=== PATIENT | female | born 1945 | race Caucasian/White ===

== ENCOUNTER → 2017-05-06 | Outpatient (CLI) | payer MEDICARE, OTHER ==
[~2017-05-06] MED LIST: ADVAIR 2501 DISK W/D; ADVAIR 5001 DISK W/1 INH; ALBUTEROL17 GM; ALBUTEROL17 GM INH; ALLEGRA ALLERG180 MG PO; AMIODARONE; ASPIRIN; ATROVENT HFA12.9 G2 INH; BENZONATATE200 M1 PO; CALCIUM 500 + D1 TAB; COMBIVENT INH14.7 GM; COUMADIN; DOCUSATE SODIU100 MG PO; DOXYCYCLINE HY100 M3 PO; DULOXETINE HCL60 MG; DULOXETINE HCL60 MG PO; FENOFIBRATE145 M1 PO; FLAGYL PO; FOLIC ACID1 MG; GLUCOPHAGE500 M1 PO; GLUCOSAMINE-CHO1 TA5 PO; HYDROCODONE/APA1 T16 PO; LASIX; LASIX20 MG PO; LEVAQUIN750 M1 PO; LISINOPRIL2.5 MG PO; LOPRESSOR PO; LOW DOSE ASPIRI81 M2 PO; MAGNESIUM400 MG PO; METAMUCIL0.52 G; MUCINEX DM1 TAB.SR .; NEURONTIN300 MG PO; OMEPRAZOLE40 M1 PO; ONDANSETRO8 MG/UDTAB PO; OXYCODONE HCL5 MG; PRADAXA150 MG PO; SENOKOT S1 TA1 PO; SYNTHROID; SYNTHROID75 MCG PO; TOPAMAX; TOPAMAX50 MG PO; VIAGRA; VICODIN 5/500 T1 TAB; VITAMIN B122500 MCG PO; VITAMIN D250000 UNIT PO; ZANTAC; ZOLOFT
--- NOTE | ~2017-05-06 | CT2 ---
[facility] A Service of [facility] & [facility] RADIOLOGY TEXT RESULTS PATIENT: MESSI MITCHELL LOCATION: [facility] : 44 UNIT #: [id number] AGE: [address]: Yomaira Mehta MD SEX: F ORDER DR: [id number] [facility] [address] [place], [place] [address] [id number] O MR#: [id number] Acc #: [id number] NAME: MESSI MITCHELL : 1945 SEX: F STUDY DATE/TIME: 05/06/2017 11:31 UNIT: [facility] ROOM: STUDY DESCRIPTION: CT Abd and Pelv W Cont Attending Physician: Yomaira Mehta M.D. Referring Physician: Yomaira Mehta M.D. Ordering Physician: Yomaira Mehta M.D. Primary Care Physician: Selina Valenzuela M.D. MEDICAL IMAGING REPORT This report is preliminary unless electronic signature is present EXAM Abdomen and pelvis CT with contrast, 05/06/2017. INDICATIONS 72-year-old female with a history of malignant neoplasm of the pancreas. Nausea, vomiting, weight loss of 40 pounds over the past 6 months. Diarrhea since November. Status post chemotherapy and radiation therapy. Status post pancreatic surgery and cholecystectomy. TECHNIQUE Contrast enhanced CT of the abdomen and pelvis was performed compared with 09/10/2016. This CT exam was performed with one or more of the following radiation dose reduction techniques: Automatic exposure control, adjustment of mA and/or kV according to patient size, and iterative reconstruction. FINDINGS CT abdomen: Please see the separately dictated CT chest same date for further details regarding chest findings. There are new noncalcified pulmonary nodules in the left lower lobe most characteristic of metastatic disease until proven otherwise. Background changes of emphysema are present. Small left effusion. Aorta demonstrates atherosclerotic change. There is ectasia but no aneurysm or dissection. The patient is status post resection of the body and tail of the pancreas. There are new omental and mesenteric masses intimately associated with the transverse colon and splenic flexure of the colon and the undersurface of the left hemidiaphragm that are most characteristic of metastatic disease until proven otherwise. One mass associated with the splenic flexure of the colon measures 5.4 x 2.3 cm. A second mass more posteriorly at nearly the same level measures 3.5 x 4.3 cm. Intimately associated with the STS. [facility] A Service of [facility] & [facility] RADIOLOGY TEXT RESULTS PATIENT: MESSI MITCHELL LOCATION: [facility] : 44 UNIT #: [id number] AGE: [address]: Yomaira Mehta MD SEX: F ORDER DR: proximal descending colon and splenic flexure, there is a third mass measuring 3.9 x 3.2 cm. Smaller probable omental metastatic deposits are also present including an 11 mm nodule associated with the peritoneal reflection in the midline anteriorly and a nodule anterior to the distal transverse colon measuring 11 mm. Spleen surgically absent. Adrenal glands unremarkable. There is an upper pole cyst on the left measuring 18 mm. No hydronephrosis of either kidney. Liver unremarkable gallbladder surgically absent. Stomach not well distended or evaluated. There is an abnormal-appearing lymph node or additional mesenteric soft tissue deposit measuring 14 x 19 mm in the gastrohepatic ligament. CT pelvis: Bladder distended but otherwise unremarkable. No drainable fluid collection in the pelvis. There are new nodules interposed between the rectum and uterus measuring 8 and 6 mm respectively not clearly demonstrated on the prior study and therefore suspicious for drop metastases. Equivocal additional adnexal nodules on the left measuring 12 and 14 mm respectively. These could alternatively represent unopacified bowel loops. At this point, there is no evidence of bowel obstruction. There is an area of fat necrosis in the left upper quadrant. Appendix normal. Inguinal canals unremarkable. Osseous structures demonstrate lucencies in the L2 vertebral body and a superior endplate compression deformity of L1 that are unchanged. There is lumbar levoscoliosis with a rotational component clockwise in rotation. IMPRESSION 1. Abnormal examination. Imaging features are most characteristic of interval development of metastatic disease with multiple mesenteric and omental masses and smaller nodules in the left upper quadrant and upper midline abdomen as described. The largest measures up to 5.4 cm associated with the splenic flexure and junction of the distal transverse colon. See reference measurements and locations of the other masses and nodules in the body of the report. 2. At this point, there is no free air or bowel obstruction or drainable fluid collection. 3. 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 Equivocal drop metastases in the left adnexa measuring up to 1.4 cm. 4. Postop changes related to pancreatic partial resection, splenectomy and cholecystectomy. 5. Left renal cyst. 6. Please see the separately dictated CT chest same date for further details regarding findings most characteristic of metastatic disease to the chest that has developed in the interval. 7. No interval change in a superior endplate compression deformity of L1 and lucencies at the L2 level. STAT * RESULT [facility]. [facility] A Service of [facility] RADIOLOGY TEXT RESULTS PATIENT: MESSI MITCHELL LOCATION: [facility] : 44 UNIT #: [id number] AGE: [address]: Yomaira Mehta MD SEX: F ORDER DR: Dictated by... Pepe Velasquez M.D. THIS IS AN ELECTRONICALLY VERIFIED REPORT Pepe Velasquez M.D. at 05/06/2017 3:53 PM Sav TD: 05/06/2017 13:03 JOB #: [id number] MEDICAL IMAGING REPORT Page 1 of 1 COPY
--- NOTE | ~2017-05-06 | CT55 ---
[facility] A Service of [facility] & [facility] RADIOLOGY TEXT RESULTS PATIENT: MESSI MITCHELL LOCATION: [facility] : 44 UNIT #: [id number] AGE: [address]: Yomaira Mehta MD SEX: F ORDER DR: [id number] [facility] [address] [place], [place] [address] [id number] O MR#: [id number] [facility] #: [id number] NAME: MESSI MITCHELL : 1945 SEX: F STUDY DATE/TIME: 05/06/2017 11:31 UNIT: [facility] ROOM: STUDY DESCRIPTION: CT Chest W Con Attending Physician: Yomaira Mehta M.D. Referring Physician: Yomaira Mehta M.D. Ordering Physician: Yomaira Mehta M.D. Primary Care Physician: Selina Valenzuela M.D. MEDICAL IMAGING REPORT This report is preliminary unless electronic signature is present EXAM Chest CT with contrast, 05/06/2017 INDICATION 72-year-old female with history of pancreatic malignancy. Diarrhea since November of this year. Weight loss over the past 6 months of 40 pounds. Status post chemotherapy and radiation therapy. Status post pancreatic surgery in November and cholecystectomy procedures. Observation for suspected malignant neoplasm and active malignancy. TECHNIQUE Contrast-enhanced CT of the chest was performed. COMPARISON 07/23/[address] exam was performed with one or more of the following radiation dose reduction techniques: automatic exposure control, adjustment of mA and/or kV according to patient size, and iterative reconstruction. FINDINGS CT CHEST: The examination is abnormal, there is a trace left-sided pleural effusion. There are multiple new noncalcified pulmonary nodules on the left most characteristic of metastatic disease until proven otherwise. The largest is in the anterior upper lobe on the left measuring 2.3 cm x 1.9 cm. It is intimately associated with the first costochondral junction and there was probable erosive change of the posterior margin of the left first rib. There are 3 new nodules in the left lung base, the largest of which measures 12 mm and the smallest of which measures 6 mm. There are multiple nodules associated with the major fissure on the left measuring up to 7 mm. There is also a nodule abutting the anterior medial upper mediastinum in the left upper lobe that measures STS. [facility] A Service of [facility] & [facility] RADIOLOGY TEXT RESULTS PATIENT: MESSI MITCHELL [id number] 44 UNIT #: [id number] AGE: [address]: Yomaira Mehta MD SEX: F ORDER DR: about 9 mm and there is a similar nodule abutting the posterior mediastinal fat adjacent to the aorta and in the left lower lobe medially measuring 14 mm. Please note other smaller nodules are also present in the left lung. The reference nodules are provided for index measuring purposes. Included thyroid unremarkable. No pericardial effusion. No axillary adenopathy. Mediastinal nodes similar to the prior study including a precarinal node measuring 10 mm and AP window node measuring 6 mm. There is evidence of mitral valve replacement. Aorta demonstrates no aneurysm or dissection. Included upper abdomen demonstrates postop change related to the pancreas. However, there are new soft tissue masses in the left upper quadrant abutting the undersurface left hemidiaphragm and colonic mesentery and omentum. These measure 2.8 cm x 5.5 cm associated with the splenic flexure of the colon and 3.3 cm x 4.7 cm in the splenectomy bed. More inferiorly, there is an adjacent 4.1 cm x 3.6 cm soft tissue mass. Imaging findings are most characteristic of malignancy until proven otherwise. There is an area of fat necrosis anterior to the splenic flexure of the colon. Additional probable omental metastasis anterior to the transverse colon measures 14 mm. Please see the separately dictated abdomen and pelvis CT for further details. Osseous structures demonstrate stable height loss of the superior endplate of L1. Lucencies in the L2 vertebral body are unchanged. No new compression fracture or malalignment. IMPRESSION 1. Abnormal study. There are multiple new lung nodules most characteristic of metastatic disease in the left lung. The largest measures 2.3 cm x 1.9 cm and is intimately associated with the undersurface of the first costochondral junction. See reference measurements and locations in the body of the report. 2. Imaging findings most characteristic of metastatic disease in the upper abdomen where there are multiple omental and mesenteric masses present, the largest of which measures up to 5.5 cm x 2.8 cm. 3. No change in mediastinal nodes. 4. Trace left effusion and background changes of emphysema and old healed granulomatous disease. 5. Upper abdomen demonstrates postop changes of the pancreas, splenectomy, and cholecystectomy changes. Incidental left renal cyst. 6. Stable compression deformity of L1. Stable lytic changes at L2. STAT * RESULT Dictated by... Pepe Velasquez M.D. [facility] A Service of [facility] & [facility] RADIOLOGY TEXT RESULTS PATIENT: MESSI MITCHELL LOCATION: [facility] : 44 UNIT #: [id number] AGE: [address]: Yomaira Mehta MD SEX: F ORDER DR: THIS IS AN ELECTRONICALLY VERIFIED REPORT Pepe Velasquez M.D. at 05/06/2017 3:52 PM ARLEEN/renee TD: 05/06/2017 12:42 JOB #: [id number] MEDICAL IMAGING REPORT Page 1 of 1 COPY
[2017-05-06 11:01] LABS: POC - CREATININE 1.04 mg/dL (0.44-1.03)
== END | disposition home or self-care (01) ==
LOC: CCAT 09:55
PROVIDERS: Internal Medicine Hematology
DX: C25.3 Malignant neoplasm of pancreatic duct (principal); R11.2 Nausea with vomiting, unspecified; R91.8 Other nonspecific abnormal finding of lung field; R93.1 Abnormal findings on diagnostic imaging of heart and coronary circulation; M43.8X6 Other specified deforming dorsopathies, lumbar region; R93.5 Abnormal findings on diagnostic imaging of other abdominal regions, including retroperitoneum; R19.02 Left upper quadrant abdominal swelling, mass and lump; Z90.49 Acquired absence of other specified parts of digestive tract; Z90.81 Acquired absence of spleen; Z90.411 Acquired partial absence of pancreas
CPT/HCPCS: 71260; 74177; 82565; Q9967